=== PATIENT | female | born 1940 | race Caucasian/White ===

== ENCOUNTER → 2018-07-28 | Outpatient (CLI) | payer OTHER ==
[~2018-07-28] MED LIST: ATOR20TA65 PO; LISI30TA4 PO; POTA10TA19 PO
== END | disposition home or self-care (01) ==
LOC: RAH 10:13
PROVIDERS: ATTEND Internal Medicine
DX: M25.562 Pain in left knee (principal); M25.561 Pain in right knee
CPT/HCPCS: 73560

== ENCOUNTER 2019-01-26 10:08 | Inpatient (IN) | payer OTHER | END 2019-02-06 23:20 | LOC: EDH 10:08 → EDHIP 12:51 → 3CH 16:41 | DX: C18.9 Malignant neoplasm of colon, unspecified (principal); K56.609 Unspecified intestinal obstruction, unspecified as to partial versus complete obstruction; E78.2 Mixed hyperlipidemia; I70.0 Atherosclerosis of aorta; N18.2 Chronic kidney disease, stage 2 (mild); E86.0 Dehydration; E87.6 Hypokalemia; I12.9 Hypertensive chronic kidney disease with stage 1 through stage 4 chronic kidney disease, or unspecified chronic kidney disease ==